=== PATIENT | male | born 1935 | race Caucasian/White ===

== ENCOUNTER → 2020-06-08 | Outpatient (REF) | payer MEDICARE ==
[~2020-06-08] MED LIST: AMLO1TAB24 PO; ASPI81TA86 PO; GLIP5TAB20 PO; HYDR50TAB PO; JANU100T PO; METO1TAB7 PO; MM S100C PO; MONT10TA4 PO; PERC5TAB12 PO; PLAV1TAB2 PO; PRAV20TA2 PO; PRIL20CA9 PO; RAMI1CAP26 PO; RANO500T7 PO; TYLE325T5 PO
[2020-06-08 17:29] LABS: CREATININE, URINE 46.5 MG/DL; MALB URINE SIEMENS < 5.0 MG/L; MAU/CREAT RATIO 10.7 MCG/MG (0.0-30.0)
== END ==
LOC: M LAB REF 14:56
PROVIDERS: ATTEND Nurse Practitioner Family
DX: E11.65 Type 2 diabetes mellitus with hyperglycemia (principal)

== ENCOUNTER → 2022-12-06 | Outpatient (REF) | payer MEDICARE ==
[~2022-12-06] MED LIST changes: +CLOP75TA99 PO; -MONT10TA4 PO; +MONT10TA97 PO; -PLAV1TAB2 PO
[2022-12-06 20:08] LABS: CREATININE, URINE 99.9 MG/DL
== END ==
LOC: M LAB REF 17:16
PROVIDERS: ATTEND Nurse Practitioner Family
DX: E11.65 Type 2 diabetes mellitus with hyperglycemia (principal)